=== PATIENT | female | born 1965 | race Caucasian/White ===

== ENCOUNTER 2018-01-23 21:38 | Emergency (ER) | payer OTHER ==
[~2018-01-23] VITALS: Ht 149.9 cm; Wt 66.9 kg
[2018-01-23 22:00] VITALS: BP_SYST 152; BP_SYST 153; BP_DIAS 94; BP_DIAS 98
[2018-01-23] MEDS ORDERED: MORPHINE SULFATE 4 MG/ML SYR IM ONE (22:30)
[2018-01-23] MEDS ORDERED: ONDANSETRON 4 MG ODT PO ONE (23:35)
[2018-01-23] MEDS ORDERED: KETOROLAC 30 MG/ML VIAL IM ONE (23:35)
[2018-01-24] MEDS ORDERED: SUMAtriptan 6 MG/0.5 ML VIAL SUBQ ONE (00:25)
[2018-01-24 02:55] VITALS: BP 128/67
== END 2018-01-24 02:47 | disposition home or self-care (01) ==
LOC: MED 21:38
DX: G43.909 Migraine, unspecified, not intractable, without status migrainosus (principal)
CPT/HCPCS: 70450; 96372; 99284; J1885; J3030; Q0163; S0119

== ENCOUNTER 2019-07-06 09:37 | Emergency (ER) | payer OTHER ==
[~2019-07-06] VITALS: Ht 149.9 cm; Wt 67.1 kg
[2019-07-06 09:42] VITALS: BP 132/78
--- NOTE | 2019-07-06 10:00 | NUR ---
54/F BIB SON C/O R HIP PAIN RADIATING RIGHT ABDOMINAL & RUL X 2 WEEKS. DENIES INJURY HX: APPENDECTOMY, HYSTERECTOMY. ABD SOFT AT THIS TIME. PATIENT STATES PAIN OF 10/10 AT THIS TIME.PATIENT POSITIONED FOR COMFORT; HOB ELEVATED; BEDRAILS UP X1; BED DOWN. ER MD MADE AWARE OF PT STATUS.
--- NOTE | 2019-07-06 10:24 | NUR ---
Dr. Irizarry is evaluating the patient at bedside.
[2019-07-06] MEDS ORDERED: KETOROLAC 60 MG/2 ML VIAL IM ONE (10:30)
[2019-07-06] MEDS ORDERED: GLYCOPYRROLATE 0.2 MG/ML VIAL IV ONE (10:30)
--- NOTE | 2019-07-06 10:36 | NUR ---
Patient taken to CT scan via wheelchair by tech.
--- NOTE | 2019-07-06 12:17 | NUR ---
Patient ambulated to restroom with assistance of daughter.
[2019-07-06 12:30] LABS: BILIRUBIN,URINE NEGATIVE (NEGATIVE); BLOOD, URINE 1+ (NEGATIVE); COLOR,URINE YELLOW (YELLOW); LEUKOCYTE ESTERASE ,URINE NEGATIVE (NEGATIVE); NITRITE, URINE NEGATIVE (NEGATIVE); PH,URINE 5.5 (5.0-9.0); UGLUCOSE NEGATIVE (NEGATIVE)
[2019-07-06 12:44] LABS: APPEARANCE,URINE CLOUDY (CLEAR); RBC,URINE 0-5 /HPF (0-5); WBC,URINE 0-5 /HPF (0-5)
[2019-07-06 12:45] LABS: CALCIUM OXALATE CRYSTALS,UR 0-10 /HPF (None Seen)
[2019-07-06 13:56] VITALS: BP 123/69
--- NOTE | 2019-07-06 13:56 | NUR ---
Patient discharged with v/s stable. Written and verbal after care instructions given and explained. Patient alert, oriented and verbalized understanding of instructions. Ambulatory with steady gait. All questions addressed prior to discharge. ID band removed. Patient advised to follow up with PMD. Rx of COLACE & VOLTAREN given. Patient educated on indication of medication including possible reaction and side effects. Opportunity to ask questions provided and answered.
== END 2019-07-06 13:56 | disposition home or self-care (01) ==
LOC: MED 09:37
DX: K59.00 Constipation, unspecified (principal); Z88.5 Allergy status to narcotic agent; Z90.49 Acquired absence of other specified parts of digestive tract; Z90.710 Acquired absence of both cervix and uterus
CPT/HCPCS: 74176; 81001; 96372; 96374; 99284; J1885; J3490

== ENCOUNTER 2020-09-11 20:52 | Emergency (ER) | payer OTHER ==
[~2020-09-11] VITALS: Ht 149.9 cm; Wt 66.2 kg
[2020-09-11 21:14] VITALS: BP 117/86
[2020-09-11] MEDS ORDERED: NACL 0.9% 500 ML IV ONE (22:40)
[2020-09-12 00:18] LABS: BASOPHILS # (AUTO) 0.1 K/uL (0.00-0.22); BASOPHILS % (AUTO) 1.2 % (0.0-2.0); EOSINOPHILS # (AUTO) 0.5 K/uL (0-0.4); EOSINOPHILS % (AUTO) 7.8 % (0.0-4.0); HEMATOCRIT 39.6 % (36-48); HEMOGLOBIN 13.4 g/dL (12.0-16.0); LYMPHOCYTES # (AUTO) 2.6 K/uL (2.5-16.5); LYMPHOCYTES % (AUTO) 37.9 % (20.5-51.1); MEAN CORPUSCULAR HEMOGLOBIN 31 pg (27-31); MEAN CORPUSCULAR HGB CONC 34 g/dL (33-37); MEAN CORPUSCULAR VOLUME 92.4 fL (80-94); MONOCYTES # (AUTO) 0.6 K/uL (0.8-1.0); MONOCYTES % (AUTO) 8.3 % (1.7-9.3); NEUTROPHILS # (AUTO) 3.1 K/uL (1.8-7.7); NEUTROPHILS % (AUTO) 44.8 % (42.2-75.2); PLATELET COUNT (AUTO) 243 K/uL (140-450); RED BLOOD CELL COUNT(AUTO) 4.29 MIL/uL (4.20-5.40); RED CELL DISTRIBUTION WIDTH 13.6 % (11.6-13.7); WHITE BLOOD COUNT (AUTO) 6.8 K/uL (4.8-10.8)
[2020-09-12 00:40] LABS: ALBUMIN 3.9 g/dL (3.4-5.0); ANION GAP 12.1 (8-16); CARBON DIOXIDE 28.9 mmol/L (21-32); CREATININE 0.7 mg/dL (0.6-1.3); TOTAL BILIRUBIN 0.5 mg/dL (0.0-1.0)
[2020-09-12 01:28] VITALS: BP 117/86
== END 2020-09-12 01:28 | disposition home or self-care (01) ==
LOC: MED 20:52
DX: R00.2 Palpitations (principal); R07.9 Chest pain, unspecified
CPT/HCPCS: 36415; 71045; 80053; 83690; 84484; 85025; 85379; 93005; 99285